=== PATIENT | male | born 1975 | race Caucasian/White ===

== ENCOUNTER 2019-08-20 17:04 | Emergency (ER) | payer OTHER ==
[~2019-08-20] VITALS: Ht 180.3 cm; Wt 95.3 kg
[2019-08-20 17:06] VITALS: Ht 180.3 cm; Wt 95.3 kg
[2019-08-20 18:22] VITALS: BP 132/75
== END 2019-08-20 18:22 | disposition home or self-care (01) ==
LOC: ED 17:04
DX: M76.62 Achilles tendinitis, left leg (principal)
CPT/HCPCS: 85378; J1885; Q0092